=== PATIENT | female | born 1980 | race Asian ===

== ENCOUNTER → 2017-05-18 11:02 | Outpatient (CLI) | payer BC | END | disposition home or self-care (01) | LOC: D.US 10:00 | DX: N83.209 Unspecified ovarian cyst, unspecified side (principal) ==

== ENCOUNTER → 2017-07-11 13:22 | Outpatient (CLI) | payer BC | END | disposition home or self-care (01) | LOC: D.MRI 13:22 | DX: M25.562 Pain in left knee (principal) ==

== ENCOUNTER → 2017-10-12 19:41 | Outpatient (CLI) | payer BC | END | disposition home or self-care (01) | LOC: D.RAD 19:41 | DX: M25.552 Pain in left hip (principal); M25.551 Pain in right hip ==

== ENCOUNTER 2018-02-14 07:10 | Day surgery (SDC) | payer BC ==
[2018-02-13 11:07] LABS: HEMATOCRIT 41.4 % (36.0-48.0); MCH 29.5 pg (26.0-34.0); MCHC 33.8 g/dL (31.0-37.0); MCV 87.3 fL (80.0-100.0); MEAN PLATELET VOLUME 10.1 fL (7.4-10.4); RBC 4.74 10x6/uL (4.00-5.40); RDW 12.9 % (11.5-14.5); WBC 8.6 10x3/uL (4.8-10.8)
[~2018-02-14] VITALS: Ht 152.4 cm; Wt 64.4 kg
--- NOTE | ~2018-02-14 | OP ---
PATIENT NAME: GAGE JUDD MEDICAL RECORD: [id number] :76 LOCATION:[facility] ADMISSION DATE: SURGEON: ROOSEVELT CARRASQUILLO DO DATE OF OPERATION: 02/14/2018 PROCEDURE PERFORMED: Left knee scope with lateral release. PREOPERATIVE DIAGNOSIS: Left knee patellofemoral syndrome. 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 INDICATIONS: Ms. Judd is a 37-year-old female who presented to my office last year with complaint of knee pain mostly going up and down hills and after going for long runs. She complained of mostly in the patellar area and had some crepitus with patellar grind test. She had tight lateral retinaculum on exam. It was informed her after she had failed more than 6 months of physical therapy and nonoperative treatment including injections that we try a lateral release to see if that helped. She had an MRI that did not reveal any abnormalities. She was informed of the risks and benefits of procedure and consented to the procedure. DESCRIPTION OF PROCEDURE: The patient was taken to the operative suite, laid in supine position, given general anesthetic and two grams Ancef preoperatively. The left lower extremity was prepped and draped in sterile fashion. Tourniquet was under the drapes above the knee. A timeout was performed, everyone was in agreement as to the correct site, side, patient, and procedure. The knee was then flexed and the anterolateral portal was established with an 11-blade scalpel and the trocar was entered into the knee. Water was turned on and the camera was then inserted. The knee was inspected. The patella was noted to ride somewhat laterally on the femur and the chondromalacia grade II was noted at that time. There is fissuring. There were no loose pieces of chondrocytes of cartilage. The lateral gutter was inspected. No loose bodies were seen there, likewise for the medial gutter. The knee was then flexed down and the medial compartment was inspected. The medial portal was then established with first 18-gauge spinal needle and then an 11-blade scalpel. A probe was then inserted into the knee and the meniscus was probed. No tears were seen in the medial meniscus. ACL was probed and they seemed to be very taut. The knee was then [id number] and the lateral meniscus was inspected and no tears were seen in it either. The scope was then switched from the lateral to medial portal and the lateral retinaculum was viewed. The burner was then brought in from the lateral portal and the lateral retinaculum was divided, any bleeders were coagulated at that time. She did have some bleeding and the tourniquet was inflated for 5 minutes at that point to complete the procedure and then was let down. The scope was then switched back to the lateral portal and the knee was flexed about 30 degrees and the patella seemed to ride better in the trochlear groove and not as lateral on the lateral femoral condyle. This was improved alignment and the water was turned off and the suction was turned on and then the portal sites were closed with 4-0 Monocryl in inverted interrupted fashion and Steri-Strips, 4 x 4, Telfa, Tegaderm was then placed on the knee. ABD was then placed over that and Webril placed over that and Vernon wrap. A 6-inch Vernon was used to wrap the knee and SURESH hose stockings placed up to the knee. BLOOD LOSS: Minimal. OPERATIVE REPORT [id number] GAGE JUDD TOURNIQUET TIME: 5 minutes at 350 mmHg. COMPLICATIONS: None. 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
[~2018-02-14 07:10] MED LIST: ABILIFY10 MG PO; HYDROCODONE-APA1 TAB PO; NIFEDIPINE ER30 MG PO; ZANAFLEX4 MG PO
[2018-02-14 07:59] VITALS: BP 120/64; Ht 152.4 cm; Wt 64.4 kg
[2018-02-14] MEDS ORDERED: HYSINGLA ER20 MG PO (12:22)
== END 2018-02-14 14:15 | disposition home or self-care (01) ==
LOC: D.OPS 07:10 → D.PAN 07:30 → D.OPS 09:30 → D.PAN 10:15 → D.OPS 14:15
PROVIDERS: Anesthesiology
DX: M22.2X2 Patellofemoral disorders, left knee (principal); M22.42 Chondromalacia patellae, left knee; Z01.812 Encounter for preprocedural laboratory examination

== ENCOUNTER → 2018-07-24 07:19 | Outpatient (CLI) | payer BC ==
[2018-02-14 07:59] VITALS: BMI 27.7
[~2018-07-24 07:19] MED LIST changes: +HYSINGLA ER20 MG PO
== END | disposition home or self-care (01) ==
LOC: D.LAB 07:19
DX: Z20.828 Contact with and (suspected) exposure to other viral communicable diseases (principal)

== ENCOUNTER → 2018-08-02 06:40 | Outpatient (CLI) | payer BC ==
[2018-02-14 07:59] VITALS: BMI 27.7
== END | disposition home or self-care (01) ==
LOC: D.MRI 06:40
DX: M54.12 Radiculopathy, cervical region (principal); M54.14 Radiculopathy, thoracic region

== ENCOUNTER → 2018-10-12 15:54 | Outpatient (CLI) | payer BC ==
[2018-02-14 07:59] VITALS: BMI 27.7
== END | disposition home or self-care (01) ==
LOC: D.MRI 15:54
PROVIDERS: ATTEND Nurse Practitioner Family
DX: R51 Headache (principal)

== ENCOUNTER → 2019-04-16 15:50 | Outpatient (CLI) | payer BC ==
[2018-02-14 07:59] VITALS: BMI 27.7
== END | disposition home or self-care (01) ==
LOC: D.MRI 15:50
PROVIDERS: ATTEND Family Medicine
DX: M25.562 Pain in left knee (principal)

== ENCOUNTER → 2019-10-02 11:35 | Outpatient (CLI) | payer BC ==
[2018-02-14 07:59] VITALS: BMI 27.7
== END | disposition home or self-care (01) ==
LOC: D.MRI 09-18 10:00
PROVIDERS: ATTEND Orthopaedic Surgery
DX: M25.562 Pain in left knee (principal); M25.531 Pain in right wrist

== ENCOUNTER → 2020-12-11 08:48 | Outpatient (CLI) | payer BC ==
[2018-02-14 07:59] VITALS: BMI 27.7
== END | disposition home or self-care (01) ==
LOC: D.CT 08:48
PROVIDERS: ATTEND Family Medicine
DX: R10.13 Epigastric pain (principal)

== ENCOUNTER → 2020-12-19 07:58 | Outpatient (CLI) | payer BC ==
[2018-02-14 07:59] VITALS: BMI 27.7
== END | disposition home or self-care (01) ==
LOC: D.HCCECHO 07:58
PROVIDERS: ATTEND Internal Medicine Cardiovascular Disease
DX: I10 Essential (primary) hypertension (principal)